=== PATIENT | female | born 1940 | race Caucasian/White ===

== ENCOUNTER 2017-11-03 08:13 | Day surgery (SDC) | payer MEDICARE, BC ==
[~2017-11-03 08:13] MED LIST: Metoclopramide 10 MG/2 ML SDV IV PRN; Sodium Chloride 0.9% 1,000 ML IV SCH; Sodium Chloride 0.9% 10 ML Syringe FLUSH PRN
[2017-11-03] MEDS ORDERED: Propofol 1,000 MG/100 ML SDV ONE (11:15)
[2017-11-03] MEDS ORDERED: Midazolam 1 MG/ML 5 ML SDV ONE (11:15)
--- NOTE | 2017-11-03 14:09 | OR ---
DATE OF OPERATION: 11/03/2017 PREOPERATIVE DIAGNOSIS: Screening colonoscopy. POSTOPERATIVE DIAGNOSIS: Screening colonoscopy. PROCEDURE: Colonoscopy. ANESTHESIA: MAC. ESTIMATED BLOOD LOSS: None. COMPLICATIONS: None. INDICATIONS FOR THE PROCEDURE: The patient is a 77-year-old female, who is here today for a screening colonoscopy. Last colonoscopy was approximately 10 years ago was normal. The patient has not had any change in bowel habits since that time. DESCRIPTION OF PROCEDURE: Informed consent was obtained from the patient. The patient was taken to the operating room, placed on the table in left lateral decubitus position. Monitored anesthesia care was administered. On digital rectal exam, no masses were identified. Colonoscope was then advanced through the anus and directed toward the cecum. Cecum was identified by appendiceal orifice and ileocecal valve. The colonoscope was then slowly withdrawn. No masses. No polyps. No areas of ischemia or inflammation were identified. No diverticula. Retroflexion was then performed in the rectum and was also unremarkable. Colonoscope was then withdrawn. FINDINGS: Normal colonoscopy. RECOMMENDATIONS: Would not recommend any further screening colonoscopies at this time due to age. YNES/YUE /[id number]
== END 2017-11-03 12:45 | disposition home or self-care (01) ==
LOC: LB.SDS 08:13
PROVIDERS: ATTEND Surgery
DX: Z12.11 Encounter for screening for malignant neoplasm of colon (principal); I10 Essential (primary) hypertension; Z88.8 Allergy status to other drugs, medicaments and biological substances
CPT/HCPCS: J2250; J3490; J7040